=== PATIENT | female | born 1955 | race Caucasian/White ===

== ENCOUNTER 2021-08-28 10:40 | Emergency (ER) | payer OTHER ==
[~2021-08-28] VITALS: Ht 157.5 cm; Wt 37.6 kg
[~2021-08-28 10:40] MED LIST: CEFDINIR300 MG PO; PERCOCET 5-3251 EACH PO; XANAX 0.5 MG0.5 M1 PO
[2021-08-28 15:46] VITALS: BP 156/95
[2021-08-29] MEDS ORDERED: LIPITOR 10 MG10 M1 PO (01:36)
[2021-08-29] MEDS ORDERED: ZOCOR 10 MG TAB10 M1 PO (02:24)
[2021-08-29] MEDS ORDERED: SPIRIVA18 MCG INH (02:24)
[2021-08-29] MEDS ORDERED: NABUMETONE 500500 M2 PO (02:25)
[2021-08-29] MEDS ORDERED: VENTOLIN HFA 1818 GM INH (02:26)
== END 2021-08-28 19:09 ==
LOC: ER 10:40
PROVIDERS: Emergency Medicine
DX: F99 Mental disorder, not otherwise specified (principal); Z20.822 Contact with and (suspected) exposure to COVID-19; E78.5 Hyperlipidemia, unspecified; Z79.899 Other long term (current) drug therapy; Z79.891 Long term (current) use of opiate analgesic; Z88.8 Allergy status to other drugs, medicaments and biological substances

== ENCOUNTER 2021-08-28 19:34 | Inpatient (IN) | payer OTHER ==
[~2021-08-28] VITALS: Ht 162.6 cm; Wt 36.3 kg
[2021-08-29] MEDS ORDERED: LIPITOR 10 MG10 M1 PO (01:36)
[2021-08-29] MEDS ORDERED: ZOCOR 10 MG TAB10 M1 PO (02:24)
[2021-08-29] MEDS ORDERED: SPIRIVA18 MCG INH (02:24)
[2021-08-29] MEDS ORDERED: NABUMETONE 500500 M2 PO (02:25)
[2021-08-29] MEDS ORDERED: VENTOLIN HFA 1818 GM INH (02:26)
--- NOTE | 2021-08-29 04:32 | NUR ---
ARRIVED VIA W/C ACCOMPANIED BY X1 STAFF FROM THE [facility] EMERGENCY DEPARTMENT, AND PREVIOUS TO THAT THE [facility]. COVID 19 PCR IS NEGATIVE. TRANSFERRED TO [facility] WITH A STEADY STAND TO TRANSFER NOTED. VSS 137/102 111 19 98.6 94% ON ROOM AIR. 80.6 LBS 5'3" HRRR LULNGS CTA ABD AUSCULTATED HYPOACTIVE BOWEL SOUNDS X 4. REPORTS NORMAL BM TODAY. REPORTS THAT WHEN SHE PEES, IT WAS BURNING FROM THE UTI, HOWEVER NOW IT FEELS NORMAL. AN OCCASIONAL COUGH NOTED. REPORTS HAS CHILDREN, ONE WHO LIVES DOWN THE STREET, ONE WHO LIVES IN A [place] TOWN AND ONE WHO LIVES [place]. ACKNOWLEDGES ANXIETY AND REPORTS THAT HER ANXIETY "KEEPS ME FROM BEING ABLE TO MAKE SOCIAL CHOICES, I CAN PAY MY BILLS" HIGH LEVEL OF ANXIETY NOTED, AND PATIENT REPEATEDLY ASKSFOR WHAT EVER IS ON HER MIND, AND DOES NOT REMEMBER THE ANSWER WE DISCUSSED MINUTES BEFORE. A&OX3 WITH FORGETFULNESS NOTED. FEET HAVE PEDAL PULSES PRESENT BILAT WITH A <3 SEC CAP REFILL. SKIN ON EXTREMITIES IS COOL AND DRY. SKIN IS INTACT. REPORTS A SENSITIVE STOMACH, REPORTS THAT SHE HAS NOT EATEN MUCH FOR THE LAST WEEK THAT SHE HAS HAD WHAT SHE CALLS A NERVOUS BREAK. REPORTS FEELING SAFE AT HOME AND THAT SHE LIVES ALONE IN AN APT. REPORTS ABLE TO DO ADLS AND DO CHORES FOR HERSELF. DENIES HAVING A DPOA AND REPORTS THAT SHE HAS HELP MAKING MEDICAL DECISIONS FROM SONS LEIF AND NICCI. ASSISTED PATIENT WITH CALLING LEIF. NURSE DISCUSSED ADMISSION AND THE PSYCHIATRIC CARE THAT HIS MOTHER WILL RECEIVE IN PATIENT AT [facility]. PATIENT WAS INITIALLY RELUCTANT TO SIGN HERSELF IN, AND AFTER SPEAKING TO HER SON, RECONSIDERED AND SIGNED HER CONSENT TO TREAT. SAT UP IN THE DAY ROOM IN A MIRIAM CHAIR AND DID NOT SEEM TO SLEEP MUCH AT ALL, IF ANY. AMBULATES WITH A STEADY GAIT WITHOUT THE USE OF ANY SAFETY DEVICE. LOW FALL RISK. WILL CONTINUE TO MONITOR FOR SAFETY AND COMFORT PER UNIT PROTOCOL.
[2021-08-29 05:56] LABS: CHOLESTEROL 217 mg/dL (<200); HDL CHOLESTEROL 72 mg/dL (>40); LDL CHOLESTEROL 125 mg/dL (<100); TRIGLYCERIDE 104 mg/dL (<150); VLDL 21 mg/dL (<40)
[2021-08-29 06:00] LABS: SERUM ASSESSMENT Clear
--- NOTE | 2021-08-29 08:49 | NUR ---
08-29-2021--6845--Introduced myself to patient and asked questions to gather infomation to complete a psychosocial. Patient wu no DPOA but stated she didn't ever want to be on a respirator. I explained that havoig a DPOA could be useful so that didn't happen and that the DPOA could make decisions for her if she was so sick she couldn't. She stated that sounded like a good idea but she wanted to talk to her children first to see if they would take on this responsibility.
[2021-08-29 09:38] VITALS: BP 126/76
[2021-08-29 12:24] VITALS: BP 126/76
--- NOTE | 2021-08-29 15:29 | NUR ---
Gloria was alert and oriented x4 throughout the day but appeared forgetful as pt was at the nurses station almost every 5 mintues asking for her medication. Pt was given medication education but she still continued to repeatedly come to the nurses station asking for her medications. She voiced being "nervous" and stated she didn't think her medication was working as well as it used to. She voiced c/o back pain and from 0900 until she was able to get her oxycodone (at 1200), pt would frequently ask for her pain medication. She ate about 50% of her breakfast but only 25% of lunch. Pt remained in the dayroom for most of the day and sat through group. She called and spoke to her children this morning and was able to make her needs known. Pt ambualted independently without difficulty and is a low fall risk. Will continue to monitor.
[2021-08-29 19:52] VITALS: BP 135/77
[2021-08-29 20:00] VITALS: BP 135/77
--- NOTE | 2021-08-30 01:30 | NUR ---
PATIENT SAT UP IN DINING ROOM TILL BED TIME. SHE KEPT COMING TO THIS NURSE EVERY 10 MINUTES WANTING HER XANAX. I KEPT TELLING HER IT WASN'T TIME FOR IT AND WHEN IT WOULD BE AND HOW LONG SHE HAD TO WAIT. I PROMISED I WOULD GET IT TO HER WHEN IT'S DUE. NOT SURE IF PATIENT FORGETS OR IS JUST ANXIOUS ABOUT NOT GETTING IT. PATIENT STATES THAT SHE IS NOT SI/HI/AVH. STATES SHE HAS ALWAYS BEEN A VERY ANXIOUS PERSON AND IS DEPENDENT ON HER XANAX TO HELP CONTROL IT. I DID NOT TELL PATIENT BUT PATIENT'S DOSE WAS DECREASED BY HALF OF WHAT SHE WAS TAKING. PATIENT CAME OUT OF HER ROOM AFTER TRYING TO SLEEP TO SIT UP IN THE DINING ROOM. CALLED AND SPOKE WITH TROY GODINEZ REGARDING PATIENT'S ANXIETY HIGH AND NOT ABLE TO SLEEP. NEW ORDER RECEIVED FOR TRAZADONE 50MG PO AT HS AND MAY REPEAT X 1 IF NOT ASLEEP IN AN HOUR. PATIENT WAS GIVEN ONE DOSE BUT AFTER AN HOUR SHE STILL FELT ANXIOUS AND UNABLE TO SLEEP. SHE WAS ABLE TO LAY DOWN AND LAY STILL A LITTLE LONGER THOUGHT. SECOND DOSE OF TRAZADONE 50 MG PO GIVEN TO THE PATIENT. PATIENT IS RESTING IN ROOM WITH EYES CLOSED AT THIS TIME. PATIENT AMBULATES WITHOUT ASSISTANCE AND IS STEADY ON HER FEET. SHE IS INDEPENDENT WITH CARES. PT TOOK MEDS WHOLE WITH WATER. PATIENT TOOK OXYCONTIN FOR CHRONIC BACK PAIN AT HS. BED IN LOW POSITION. PATIENT COOPERATIVE, JUST ANXIOUS AND RESTLESS AT TIMES. DENIES SI/HI/AVH. ROUTINE ROUNDS TO ASSESS SAFETY AND STATUS OF PATIENT.
[2021-08-30 04:06] LABS: GLYCOHEMOGLOBIN (HGB A1C) 5.7 % (4.8-5.6)
[2021-08-30 09:36] VITALS: BP 115/66
--- NOTE | 2021-08-30 09:52 | NUR ---
[facility] just returned a phone call from a VM left over the weekend to verify pt's medications. They stated they only filled xanax and percocet for pt on 07/27 #120 for each. Pt was prescribed xanax 1mg QID, and perocet 10-325 mg q6PRN.
[2021-08-30 10:59] VITALS: BP 115/66
--- NOTE | 2021-08-30 13:00 | NUR ---
08-30-2021--1300--Patient stopped me and asked when she could go home. I talked to her briefly about Assisted Living. She states she is doing fine living alone and she wants to go back to her apartment. I told her I would let the doctor know.
--- NOTE | 2021-08-30 17:55 | NUR ---
Pt was alert and oriented x4 throughout the day, but appeared forgetful and highly anxious. She presents with a flat, blunted affect and does not respond well to redirection. She is frequently at the nurses station asking for her xanax, and when given medication education, pt blankly stares at the staff member and does not seem to comprehend the education given. Pt appears unkept and had a significant amount of dirt under her finger nails. Pt was offered a shower and declined. This RN asked to clean the dirt from under pt's nails and she replied "why? they're not that bad?", pt allowed fingers to be cleaned with much encouragement. Pt rated her anxiety 9/10 and depression 6/10, 10 being the worst. She denied SI/HI/RAYGOZA and contracted for safety. Pt also repeadetly requested to leave today, and was placed on an involuntary 96 hour hold. Pt was handed her right and read her rights at 1715; paperwork was also faxed at this time. There was not a notary on staff at the time of fax, therefore they were faxed without being notarized. Pt voiced some frustrations regarding this and placed a phone call to her son. Pt received percocet PRN for c/o back pain with partial relief. Pt remained in the dayroom for most of the shift and participated in group. Will continue to monitor.
[2021-08-30 20:10] VITALS: BP 139/87
[2021-08-30 20:22] VITALS: BP 139/87
--- NOTE | 2021-08-31 00:10 | NUR ---
PATIENT DOUG HAS BEEN HIGHLY ANXIOUS. SHE HAS BEEN RESTLESS AND PACING AT TIMES. SHE COMES TO THE NURSE OR OTHER NURSES EVERY 2 TO 3 MINUTES SAYING SHE NEEDS HER XANAX. I SAT DOWN WITH HER TO TRY AND EXPLAIN HOW THE DOCTOR IS TRYING TO GET HER WEANED OFF THE XANAX AND ONTO A SAFER MED FOR HER ANXIETY. I'VE HAD CALLS FROM 2 OF HER SONS DOUG STATING SHE NEEDS THE XANAX AND HER PCP HAS TRIED TO GET HER OFF OF IT AND WAS UNSUCCESSFUL AND AGREES SHE NEEDS TO STAY ON IT. ONE SON, CHANDNI SAYS HIS MOM (THIS PT} HAS BEEN ON XANAX FOR 40 YEARS AND HAS HAD ALOT OF TRAUMA IN HER LIFE AND CANNOT FUNCTION NORMALLY WITHOUT IT. HE SAYS THE ANXIETY CRIPPLES HER AND PREVENTS HER HAVING A QUALITY OF LIFE. HE AND HIS BROTHER, LEIF, THAT GOES BY THE NAME NICCI, WERE ENCOURAGED TO CALL THE QUALITY AND RELIABILITY ENGINEER OR ASK FOR DR MARK TOMORROW TO DISCUSS. THEY BOTH FEEL SHE SHOULD NOT HAVE BEEN BROUGHT HERE FROM [facility] AND ARE VERY CONCERNED ABOUT HER WELL BEING. I DID CALL AND SPEAK WITH DR Kovacs REGARDING PATIENT'S ANXIETY LEVEL AND WANTED CLARITY ON HIS THINKING SINCE HE CUT HER XANAX DOSE DOWN TO BID INSTEAD OF TID AND SHE HAD BEEN ON QID AND HER ANXIETY HAS NOT IMPROVED. HE ORDERED ATIVAN .5 MG PO ONE TIME. SHE WAS GIVEN THIS WITH HER DOSE OF OXYCODONE AND FLEXERIL. SHE HAS 8 OUT 1-10 BACK PAIN. 15 MINUTES AFTER I GAVE HER THESE MEDS SHE CAME TO THE DESK AND SAID HER BACK WAS STILL HURTING ALOT. I FIXED HER A WARM MOIST PACK FOR HER BACK. SHE REFUSED THIS. FINALLY CONVINCED HER TO LAY DOWN AND REST IN BED. PATIENT ALSO HAD 2ND DOSE OF TRAZADONE 5O MG. AT THIS TIME PT LAYING IN BED AWAKE BUT STATES HER PAIN IS GONE. CONTINUING TO MONITOR.
[2021-08-31 09:08] VITALS: BP 124/73
[2021-08-31 09:36] VITALS: BP 124/73
--- NOTE | 2021-08-31 16:54 | NUR ---
Pt was alert and oriented x4 throughout the day but did appeared forgetful at times. Pt denied SI/HI/RAYGOZA but did endorse elevated anxiety, rating her anxiety 9/10. She rated her depression "4 or 5" out of 10; 10 being the worst. She also voiced c/o back pain, rating it 7/10; 10 being the worst, that was partially relieved with PRN oxycodone. She required frequent redirection as she would come to the nurses station between her scheduled xanax doses, asking for her xanax. She was noted smiling at times throughout the day and did appear more pleasant this shift than day previous, although she still wishes to go home. She did attend some groups this shift, but was withdrawn to her room at times due to being fearful of another pt on the unit. Pt's PO intake did appear to improve from previous day, eating about 50% of each meal. Pt has no new orders at this time, will continue to monitor.
[2021-08-31 19:53] VITALS: BP 129/81
[2021-09-01 00:20] VITALS: BP 163/99
--- NOTE | 2021-09-01 07:18 | NUR ---
08-31-21 CARE TRANSFERRED 1899 OBSERVED PT WALKING IN HALLWAY. LATER PT AAOX4, VSS, RR EVEN AND NONLABORED ON RA. PT DENIES SI/HI BUT REPORTS PAIN IN BACK, AND SHOWS CONCERN ABOUT PAIN MANAGEMENT. PT REMAINED CALM AND COOPERATIVE DURING NURSING ASSESSMENT. PT HAD NO DIFFICLTIES TAKING MEDICATION WHOLE WITH WATER. UPON REASSESSMENT PT REPORTED GETTING NO PAIN RELIEF. PT ACKNOWLEDGES EDUCATION WITH UNDERSTANDING THAT HCP IS CURRENTLY WORKING ON MODIFICATION OF MEDICATION REGIMENT. EARLY AM PT CAME OUT AND REPORTED SHE NEED TO LEAVE, FOR SHE NEED TO BUY A PACK OF SMOKES, PT ACKNOWLEDGE THAT SHE DID GET THE NICOTINE PATCH HCP ORDERED. LATER NOTED PT RESTING WITH EYES CLOSED IN RECLINER IN DAY ROOM. PT IWLL CONTINUE TO BE MONITOR PER [facility] PROTOCOL.
[2021-09-01 09:47] VITALS: BP 147/78
--- NOTE | 2021-09-01 12:15 | NUR ---
08/31/[address] Simpson met with the Pt. Pt was very focused on getting xanax and hydrocodone. Pt refused to give the name of her PCP stating "I dont want you to call my doctor, I need my medications to be the same". Dr. Simpson was able to find the Pt's PCP, Dedra Amin, [facility]. Pt was upset about this stating " I don't want you to talk to my doctor about my medications". Dr. Simpson explained that he would need to contact Dedra Amin concerns the matter. It was explained to the Pt that some of the medications she is taking have some impact on cognition and considering the reason the Pt was admitted it is important for the Pt to understand the impact and the have a conversation with her PCP. Pt the began to ask about discharge. Pt was informed she may be discharged or Monday. Pt seemed to be happy with this information and asked several time if the date was or Monday. We attempted to reach the Pt's son Kobe, however efforts were not sucessful. MITZI will continue to follow.
--- NOTE | 2021-09-01 14:45 | NUR ---
Assumed pt care at 0700. Pt was nonverbal upon assessment.Pt refused answering orientation question. No sign of acute distress noted upon assessments. Pt ambulates with a slow gait. AT AM pt was refusing 9AM meds. she was requesting for oxycodone and xanax Alone. Bean Weigher assess pt for pain, pt admitted that she had no pain. Dr Lara was notified. Oxycodone was D/C. Pt refused eating of drinking at this time. Continent of bowel and bladder. Constantly requesting for oxycondone and xanax. At this time pt is sitting in the day room. Will continue to monitor.
[2021-09-01 19:25] VITALS: BP 167/89
[2021-09-01 22:37] VITALS: BP 155/91
[2021-09-02 02:30] VITALS: BP 135/77
--- NOTE | 2021-09-02 06:46 | NUR ---
09-01-21 CARE TRANSFERRED 1899 OBSERVED PT SITTING IN DAY ROOM. LATER PT PRESENTS 4MM PUPIL, SKIN MOIST, PALMS MOIST, NASAL DRIP, SLIGHT TREMORS WHEN EXTENDING ARMS. HCP Artie CHESTER CONTACTED APPROX 1924 AND ORDERS RECEIVED. PT B/P AND PULSE ELEVATED FROM BASELINE. PT REFUSED MEDICATION AND WOULD ONLY ANSWER QUESTION WITH ONE ONE. THREE ATTEMPTS FOR MEDICATION BY THIS BIOLOGICAL SCIENCE TECHNICIAN, BOTH RN ON SHIFT ALSO MADE AN ATTEMPT. STARTED TAKING VS Q2H AND PER Artie CHESTER DO ORDERS CONSULTED Artie AGGARWAL NP WHO ACCESSED AND BLD GLUCOSE TAKEN 117. Artie CHESTER DO CALLED FOR UPDATE AND Artie AGGARWAL NP COMMUNICATED AND ORDERS WERE RECEIVED AND MEDICATION ADMIN, AND PT B/P AND PULSE LOWERED. PT HAS BEEN IN DAY ROOM FOR PT SAFETY, PT WILL CONTINUE TO BE MONITOR.
--- NOTE | 2021-09-02 09:25 | NUR ---
Pt has the following appointments: PCP- Dedra Echevarria NP- 09/03/2021 @1300 Pt woill need to walk into [facility] to complete and intake anytime [id number]. This information was verbal given to the Pt and included in the discharge document. Pt will discharge home 09/02/2021 @ 1000 via Taxi.
[2021-09-02 10:14] VITALS: BP 125/83
[2021-09-02 10:17] VITALS: BP 125/83
--- NOTE | 2021-09-02 10:31 | NUR ---
SPOKE WITH DR. MARK THIS AM. REPORTS PLANS TO D/C OT ORDERS FOR [facility] AND EVAL DUE TO PT. REFUSAL TO PARTICIPATE AND PLANS TO D/C TODAY/TOMORROW. OT WILL PLACE PT. ON D/C LIST, PLEASE SEND NEW ORDERS IF PT. WILLING TO PARTICIPATE.
[2021-09-02 10:34] LABS: HEMATOCRIT 43.4 % (37.0-47.0); HEMOGLOBIN 14.6 gm/dL (12.0-15.0); MCHC 33.8 g/dL (28.0-37.0); MCV 91.7 fL (80.0-100.0); RBC 4.73 mil/uL (4.20-5.00); RDW 12.8 % (10.5-14.5); WBC 9.6 thou/uL (4.0-11.0)
[2021-09-02 10:52] LABS: ALBUMIN 4.1 g/dL (3.4-5.0); CALCIUM 9.3 mg/dL (8.5-10.1); CREATININE 0.7 mg/dL (0.6-1.0); MAGNESIUM 2.2 mg/dL (1.8-2.4); POTASSIUM 3.6 mmol/L (3.5-5.1); TOTAL BILIRUBIN 0.6 mg/dL (0.2-1.0); TOTAL PROTEIN 7.7 g/dL (6.4-8.2)
--- NOTE | 2021-09-02 15:48 | NUR ---
RESUMMED CARE FROM OVERNIGHT SHIFT THIS AM, PATIENT SITTING IN DAY ROOM SLOUCHED DOWN IM CHAIR. PATIENT ALERT TO SELF ONLY PATIENT UNABLE TO TELL ME ABOUT SI/HI/AH/VH AT PRESENT. PATIENT APPEARED SEDATED DR GANDARA CAME TO ROUND AND ORDERED LABS ON PATIENT. PATIENTS ABDOMEN SOFT BOWEL SOUNDS PRESENT, PATIENTS LUNGS CLEAR. PATIENTS DISCHARGE CANELLED DUE TO APPEARING SEDATED, PATIENT HAS NOT DISPLAYED ANY BEHAVIORS. WILL CONTINUE TO MONITOR PATIENT FOR SAFETY AND NEHAVIORS.
[2021-09-02 19:35] VITALS: BP 141/94
--- NOTE | 2021-09-03 02:40 | NUR ---
PATIENT IS CONFUSED AND WILL ASK THE SAME QUESTIONS OVER AND OVER EVEN AFTER GETTING ANSWERS. PATIENT WAS OUT IN DAY ROOM THIS EVENING AND RATES HER DEPRESSION AND ANXIETY A 6-05/15 AND DENIES SI/HI, AH/VH. PATIENT DID ARGUE WITH ME FOR A LITTLE WHILE BECAUSE SHE WANTED HER OXY AND XANAX BUT I EXPLAINED TO HER THEY WERE D/C. PATIENT DID TAKE HS MEDICATIONS AND HAS SLEPT THROUGH THE NIGHT.
[2021-09-03 06:19] LABS: MCH 30.9 pg (26.0-34.0); MCHC 33.3 g/dL (28.0-37.0); MCV 92.6 fL (80.0-100.0); RBC 4.54 mil/uL (4.20-5.00); RDW 12.6 % (10.5-14.5); WBC 10.7 thou/uL (4.0-11.0)
[2021-09-03 06:32] LABS: CALCIUM 9.2 mg/dL (8.5-10.1); CREATININE 0.5 mg/dL (0.6-1.0); MAGNESIUM 2.2 mg/dL (1.8-2.4); POTASSIUM 4.3 mmol/L (3.5-5.1)
--- NOTE | 2021-09-03 09:19 | NUR ---
Patient's son Kobe called the unit inquiring if this patient was going to discharge today. certified legal secretary specialist reported this to nurse patient safety manager. Dr. Lara was called. He stated she could be discharged at 10:30am today and he would complete discharge paperwork. This nurse called Kobe to relay the information regarding discharge. He stated that he had already cancelled Medicaid transport to take patient to her 1pm appointment with her PCP. This nurse apologized and offered to call Medicaid transport back to set up transport. Kobe was appreciative of this at that moment. He then started to state that she had to have this appointment to get her medications filled. Education provided regarding MD prescribing current medications that she has been stable on while inpatient. Educated current medication regimen and prescriptions that would be sent home. Kobe then became frustrated stating that the MD took her off of her medication and she is going to because of anxiety and depression. He stated that she needed to get to the 1pm appointment so they can fill the "other medication". Kobe then started to rant about how he didn't care what schooling and licenses we have, we need to give her the "good medicine". He then started yelling about how he was going to have his mom (the patient) give a review on [place] and [place] because we won't give her the "good medicine". Yelling that he already had to cancel one appointment because of a doctor at [place] and another appointment because of a doctor at [place]. Education provided that discharge was cancelled yesterday 09/02/21 because patient was very lethargic and we wanted to ensure that she did not have any medical issues prior to discharge. Education provided that she will be discharged at 10:30am by taxi today (09/03/21) so she can make her afternoon appointment if she wished. Kobe then started to call myself a "fucking bitch" screaming. Marietta Howell RN, was present while this call occurred. Nurse politely told Kobe she was going to hang up the phone and she did.
[2021-09-03] MEDS ORDERED: PAXIL 20 MG TAB20 M1 PO (09:20)
[2021-09-03] MEDS ORDERED: VITAMIN D325 MC2 PO (09:22)
[2021-09-03 09:32] VITALS: BP 141/94
[2021-09-03 09:34] VITALS: BP 149/92
--- NOTE | 2021-09-03 10:50 | NUR ---
RESUMMED CARE FROM OVERNIGHT SHIFT THIS AM, PATIENT IN ROOM LYING QUIET. I GOT PATIENT UP TO EAT BREAKFAST AND TOOK MEDICATION WITHOUT INCIDENCE. PATIENT ALERT 0RIENTED TIMES 3, PATIENT DENIES SI/HI/AH/VH AT PRESENT. PATIENTS ABDOMEN SOFT BOWEL SOUNDS PRESENT. PATIENTS LUNGS CLEAR PATIENT DISCHARGED TO HOME TODAY. PATIENT LEFT WITH BELONGINGS AND AFTERCARE INSTRUCTONS PATIENT PUT INTO A CAB TO GO TO DESTINATION.
--- NOTE | 2021-09-04 23:00 | D ---
[facility] [place] [address] DISCHARGE SUMMARY Name: ESCOBAR FRASER Room #: 526A-[facility]#: [id number] Admission: 08/28/21 Attend Phys: Santy Lara DO Discharge: 09/03/21 Date of : 59 Report #: [id number] THIS REPORT FOR: cc: FAM - Family physician unknown FAM - Family physician unknown Santy Lara DO ~ DATE OF SERVICE: 09/03/2021 INPATIENT PSYCHIATRIC DISCHARGE SUMMARY ATTENDING PSYCHIATRIST: Santy Lara DO SENIOR ENVIRONMENTAL ENGINEER: Payam Davis M.D. DISCHARGE DIAGNOSES: Unspecified depression, substance use disorder for opiates, substance use disorder for benzodiazepines, but needing at this time conservative agonism of alprazolam. The patient is suffering from malnutrition with a BMI of 13.7, recent UTI treated with Rocephin at [facility], on cephalexin at [facility], hyperlipidemia, and chronic back pain. The patient is discharging to her home in [place], [place]. The patient is urged to establish outpatient psychiatric care for addictions as well as general mental health concerns with [facility]. The patient has an appointment with Dedra Amin, nurse practitioner, on 09/03/2021 at 1300 at [facility]. DISCHARGE MEDICATIONS: Alprazolam 0.5 mg oral, it is populated as 3 times a day, but it should be b.i.d., that is what she is getting in the hospital, atorvastatin 10 mg oral daily for hyperlipidemia, Spiriva 1 capsule inhalation daily for COPD, nabumetone 500 mg oral twice daily for chronic pain, albuterol sulfate 2 puffs inhalation p.r.n. shortness of breath, paroxetine 20 mg oral daily for depression and vitamin D supplement 1000 International Units oral daily. LABORATORY DATA: Significant laboratories this admission: Hematology: H and H 14.0 and 42.0, white count 10.7, platelet count 347. Chemistry: Sodium 145, potassium 4.3, chloride 107, bicarbonate 23, anion gap 15, BUN 20, creatinine 0.5, estimated GFR 124, A1c 5.7. Lactic acid 2.0, calcium 9.2, phosphorus 2.5, magnesium 2.2, total bilirubin 0.6, AST 15, ALT 27, alkaline phosphatase 82. CK 217. CK-MB was 6.8 on 08/24. Troponin high sensitivity was 9 on 09/02. NT-proBNP 398 on 08/24, albumin 4.1. B12 997. TSH 0.709. Urine showed 2+ ketones, 1+ leukocyte esterase, white blood cell count 1625, bacteria greater than 30. Acetaminophen less than 2. Benzodiazepines positive. Serum alcohol negative. Coronavirus was not detected on 08/26. On 08/24, CoV-2 PCR was not detected. Urine culture positive for Klebsiella oxytoca Raoultella from culture on 08/24, no growth on blood culture. [address] [address] DISCHARGE SUMMARY Name: ESCOBAR FRASER Room #: 526A-[facility]#: [id number] Admission: 08/28/21 Attend Phys: Santy Lara, DO Discharge: 09/03/21 Date of : 59 Report #: [id number] Correction in date of admission, it was 08/28 here [facility]. He was previously medically admitted to [facility] from 08/24-08/28. REASON FOR ADMISSION: A 66-year-old female who was admitted for acute psychosis, probably delirium related to medication, UTI, poor health self care. HOSPITAL COURSE: The patient was admitted to Geriatric Psychiatry Unit. She remains highly focused on getting oxycodone and alprazolam. She was started on oxycodone 5 mg 3 times a day, which was a dose reduction from 10 mg strength and Xanax 0.5 mg t.i.d. When I assumed the case following work week, I reduced the Xanax to 0.5 b.i.d. I kept the oxycodone in place. It got to the point where the patient was not eating or drinking and not showing objective signs of pain. The oxycodone was discontinued. Briefly near the end of the admission, we thought the patient was in opiate withdrawal. This has remained of question. Her [facility] mental status examination was an 18/30. During his stay as well, I spoke to Dedra Amin, an outpatient provider, discussed my concerns for the patient possibly having dementia and the concern of potential misuse of controlled substances. It had been about 3 months since she had seen the patient. She has had a significant weight loss since the BMI is 17. PHYSICAL EXAMINATION: VITAL SIGNS: On the day of discharge, temperature 36.7, pulse 100, respirations 18, BP 149/90, O2 sat 94%. MUSCULOSKELETAL: Normal gait and station, disheveled appearance. MENTAL STATUS EXAMINATION: This is a well-developed, ill-appearing female, appearing stated age. Attention fair. Concentration limited. Speech soft, normal rate. Thought process: Linear and goal directed. Thought content, focused on getting oxycodone. Denied SI, HI. Denied auditory, visual, or tactile hallucinations. Memory, not formally tested on the day of discharge. Insight and judgment are both limited. Mood and affect were restricted, congruent, diminished range. Fund of knowledge was below average. Prognosis for this patient is quite guarded given chronic use of controlled substances, refusal to get psychiatric care over several years. Also, poor social support. She did have a son named Obi that was contacted during admission, he was in favor of the mother remain on controlled substances. There were a couple of instances of him speaking inappropriately to the nursing staff, so his involvement was quite limited. <ELECTRONICALLY SIGNED> By: Santy Lara DO 09/04/212299 1749 19 Santy Lara DO /nt
== END 2021-09-03 10:00 | disposition home or self-care (01) | DRG 881 ==
LOC: SBH 19:34
PROVIDERS: Internal Medicine; Nurse Practitioner; ADMIT Psychiatry & Neurology Psychiatry; ATTEND Psychiatry & Neurology Psychiatry
DX: F32.9 Major depressive disorder, single episode, unspecified (principal); E43 Unspecified severe protein-calorie malnutrition; F11.23 Opioid dependence with withdrawal; N39.0 Urinary tract infection, site not specified; F13.20 Sedative, hypnotic or anxiolytic dependence, uncomplicated; Z68.1 Body mass index [BMI] 19.9 or less, adult; F29 Unspecified psychosis not due to a substance or known physiological condition; F41.9 Anxiety disorder, unspecified; E78.5 Hyperlipidemia, unspecified; Z60.2 Problems related to living alone; R41.0 Disorientation, unspecified; G89.29 Other chronic pain; M54.9 Dorsalgia, unspecified; Z88.8 Allergy status to other drugs, medicaments and biological substances; Z87.820 Personal history of traumatic brain injury; Z79.899 Other long term (current) drug therapy; Z20.822 Contact with and (suspected) exposure to COVID-19
CPT/HCPCS: 10880

== ENCOUNTER 2021-09-25 22:20 | Emergency (ER) | payer OTHER ==
[~2021-09-25] VITALS: Ht 152.4 cm; Wt 54.4 kg
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
[~2021-09-25 22:20] MED LIST changes: +LIPITOR 10 MG10 M1 PO; +NABUMETONE 500500 M2 PO; +PAXIL 20 MG TAB20 M1 PO; +SPIRIVA18 MCG INH; +VENTOLIN HFA 1818 GM INH; +VITAMIN D325 MC2 PO; +ZOCOR 10 MG TAB10 M1 PO
[2021-09-25 22:23] VITALS: BP 113/66
== END 2021-09-26 02:07 ==
LOC: ER 22:20
PROVIDERS: Student in an Organized Health Care Education/Training Program
DX: F03.91 Unspecified dementia, unspecified severity, with behavioral disturbance (principal); Z20.822 Contact with and (suspected) exposure to COVID-19; E78.5 Hyperlipidemia, unspecified; F41.9 Anxiety disorder, unspecified; Z79.899 Other long term (current) drug therapy; Z88.8 Allergy status to other drugs, medicaments and biological substances

== ENCOUNTER 2021-09-25 23:05 | Inpatient (IN) | payer OTHER ==
--- NOTE | 2021-09-26 04:20 | NUR ---
Pt was admitted to [facility] on 09/26/2021 at 0140. Pt was mostly cooperative with admission process. Vital signs obtained; results within normal values. Skin assessment performed; results unremarkable. Pt stated she was unsure if she wanted to sign in voluntarily. Pt requested to be asked again in the morning. Orders obtained from Jose Melchor. Hospitalist notified.
[2021-09-26 06:23] LABS: CHOLESTEROL 248 mg/dL (<200); HDL CHOLESTEROL 80 mg/dL (>40); LDL CHOLESTEROL 153 mg/dL (<100); TC:HDL 3.1 Ratio (Not establshd); TRIGLYCERIDE 75 mg/dL (<150); VLDL 15 mg/dL (<40)
[2021-09-26 09:53] VITALS: BP 120/64
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
[2021-09-26 12:09] VITALS: BP 120/64
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
[2021-09-26 20:43] VITALS: BP 117/72
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
[2021-09-27 05:06] LABS: GLYCOHEMOGLOBIN (HGB A1C) 5.8 % (4.8-5.6)
[2021-09-27 08:00] VITALS: BP 114/75
[2021-09-27 11:40] VITALS: BP 114/75
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
[2021-09-27 19:55] VITALS: BP 131/86
[2021-09-27 20:40] VITALS: BP 131/86
--- NOTE | 2021-09-28 03:24 | NUR ---
PATIENT WAS UPSET AT BEGINNING OF THE SHIFT BECAUSE SHE WAS TOLD SHE COULD NOT MAKE A PHONE CALL TO HER SON SONIA SINCE SHE HAD TALKED ON THE PHONE THREE TIMES TODAY. SHE FIXATED ON THIS ALL EVENING AND KEPT ASKING WHY DR MARK WOULDN'T USE THE PHONE. SHE FOLLOWED ME AROUND AND KEPT ASKING. I TOLD HER I COULD CALL DR MARK AND ASK HIM FOR HER. SHE ADAMNTLY REPLIED "NO!, THEN HE MAY MAKE ME STAY HERE LONGER." I EXPLAINED THAT SHE COULD TALK TO HER SON IF HE CALLED BUT SHE HAD MADE ENOUGH CALLS OUT FOR THE DAY AND OTHER PATIENTS NEEDED TO HAVE A TURN. SHE THEN WANTED HER HS PILLS FIRST THING. I DID GIVE HER HER MEDS FIRST. LATER SHE SAID SHE COULDN'T SLEEP AND WAS ANXIOUS. PRN OLANZAPINE WAS GIVEN PO A LITTLE LATER AND THE PATIENT HAS BEEN SLEEPING SINCE. SHE IS A/0X3-4. SHE WALKS WITH A STEADY GAIT. SHE HAS NOT COMPLAINED OF ANY PAIN TONIGHT. SHE TOOK HER MEDS WHOLE WITH WATER. SHE HAD EXTRA FOOD IN HER ROOM AND THIS WAS REMOVED (SUGAR PACKETS,PUDDING,ROBBY CRACKERS, EMPTY ENSURE CONTAINER.) PATIENT IS A LOW FALL RISK. BED IN LOW POSITION AND ROUTINE ROUNDS TO ASSESS SAFETY AND STATUS OF PATIENT. SHE IS TO DC 09/28/21 BY TAXI TO HER HOME AT 1300.
[2021-09-28 09:29] VITALS: BP 130/87
[2021-09-28] MEDS ORDERED: ZYPREXA 5 MG TAB5 M1 PO (10:10)
[2021-09-28 10:46] VITALS: BP 130/87
--- NOTE | 2021-09-28 10:51 | NUR ---
Patient had breakfast in the day room, poor appetite. She stayed in the day room for the morning group session. She has been anxiously waiting to go home. Patient has been asking to call her son, staff have tried helping her call him 2x and he has not answered. She denies haivng SI/HI thoughts. She said she does not feel depressed today. She took her medications whole, with no difficulty. She has been seen making conversation with other patients. She is currently getting dressed to prepare for being dischagred to home at 1300.
--- NOTE | 2021-09-28 12:06 | NUR ---
DISCHARGE INSTRUCTIONS REVIEWED WITH PATIENT SHE STATES UNDERSTANDING AND DENIES QUESTIONS OR CONCERNS REGARDING INFORMATION PROVIDED. DENIES SI/SH/HI. SMILING BROADLY STATING "I CAN'T WAIT TO GET HO0ME TO MY CHILDREN" NO NOTED OR REPORTED PSYCHOSIS/PARANOIA-DOES REPORT SOME MILD/MODERATE ANXIETY R/T DC PROCESS OTHERWISE DENIES COMPLAINTS "I FEEL GREAT"PERSONAL BELONGINGS GATHERED AND CHECKED AGAINST ADMIT INVENTORY WITH ALL BELONGINGS ACCOUNTED FOR AT TIME OF DC. CURRENTLY EATING LUNCH-AWAITING TAXI.
--- NOTE | 2021-09-30 11:22 | D ---
[facility] [address] [place] [address] DISCHARGE SUMMARY Name: GLORIA FRASER Room #: 520B-B DIS IN M.R.#: [id number] Admission: 09/26/21 Attend Phys: Santy Lara DO Discharge: 09/28/21 Date of : 59 Report #: [id number] THIS REPORT FOR: cc: FAM - Family physician unknown FAM - Family physician unknown Santy Lara DO ~ DATE OF SERVICE: 09/28/2021 INPATIENT PSYCHIATRIC DISCHARGE SUMMARY ATTENDING PSYCHIATRIST: Santy Lara DO INSPECTOR INSULATION: Allie Nelson MD DISCHARGE DIAGNOSES: Unspecified psychosis, resolved. History of substance use disorder for benzodiazepines and opiates, moderate degree. Mild neurocognitive disorder. The patient is discharging to her home. After care, she will need to establish with [facility] for dual diagnosis treatment. The patient's primary care physician, Dedra her last appointment was on 09/03/2021 at 1300. The patient will need to schedule her own followup appointment. Major neurocognitive disorder, unspecified, F32.9. ADDITIONAL INFORMATION: DISCHARGE DIET: Regular. No alcohol, no illicit drugs. Strongly advised against benzodiazepines or opioids unless absolutely necessary for acuate injury prescribed by physician. The patient is a smoker. She has declined smoking cessation of any sort. ACTIVITY LEVEL: As tolerated. Recommended against driving or operating dangerous equipment. DISCHARGE MEDICATIONS: Olanzapine 5 mg oral q. 4 p.r.n. anxiety or agitation #20. Atorvastatin 10 mg oral at bedtime for hyperlipidemia. The patient takes paroxetine 20 mg oral daily for history of depression and anxiety. She takes nabumetone 500 mg oral b.i.d. as NSAID for arthritis, vitamin D 1000 International Units oral daily for supplementation. Albuterol p.r.n. for shortness of breath, which I really do not think she required during this admission. LABORATORY DATA: Significant laboratories this admission, cholesterol 248, LDL 153, HDL 80. A1c this admission 5.8 COVID-19 PCR negative. REASON FOR ADMISSION: A 66-year-old female transferred from [facility]. She is known to us from an admission in 08/2021. The patient had been medically admitted after wandering behavior what appeared [address] [address] DISCHARGE SUMMARY Name: GLORIA FRASER Room #: 520B-B [facility].#: [id number] Admission: 09/26/21 Attend Phys: Santy Lara, Discharge: 09/28/21 Date of : 59 Report #: [id number] to be delirium, electrolyte imbalance, kind of fully cleared up, she was referred for psychiatric admission. HOSPITAL COURSE: The patient was admitted to Geriatric Psychiatry Unit. As was previously experienced, the patient was medication seeking for Xanax and opiates. She was temporarily started on Xanax by the provider covering for me. I discontinued this as she had been detoxed from it on the previous admission. The patient was not wanting help and therapeutic milieu. She was not suicidal or homicidal, in acute distress. Conversation was had with her son, Luke Crocker, her son Clifton is living with her. Luke Crocker felt comfortable with the patient returning home. Gloria chatman not dirve or operate dangerous machinery, close outpatient medical and mental health followup is essential. Smoking cessation was entertained. The patient declined outright and wishes to get cigareetes and smoke as soon as she is home! CONDITION AT DISCHARGE: Stable. PHYSICAL EXAMINATION: VITAL SIGNS: On the day of discharge, temperature 36.4, pulse 78, respirations 18, BP 130/87, O2 sat 95%, weight 37.467 kilos. NEUROLOGIC: Normal gait and station, unkempt, dress. MENTAL STATUS EXAMINATION: This is a well-developed, somewhat ill-appearing older than stated age female. Attention and concentration fair. Speech normal in rate. Thought process: Linear and goal directed. Thought content: focused on discharge and pain medications, and of course discharge from being in the hospital. Denied suicidal or homicidal ideation, auditory or visual type hallucinations. Mood and affect okay, congruent, euthymic. Memory not formally tested. Insight and judgment fair to limited. Fund of knowledge below average. Prognosis for this patient is guarded and will depend on her staying away from addictive medications, improving health with things like her smoking. <ELECTRONICALLY SIGNED> By: Santy aLra DO 09/30/21 1122 40 23 Santy Lara DO /nt
== END 2021-09-28 13:00 | disposition home or self-care (01) | DRG 881 ==
LOC: SBH 23:05
PROVIDERS: Nurse Practitioner; ADMIT Psychiatry & Neurology Psychiatry; ATTEND Psychiatry & Neurology Psychiatry
DX: F32.9 Major depressive disorder, single episode, unspecified (principal); E43 Unspecified severe protein-calorie malnutrition; F29 Unspecified psychosis not due to a substance or known physiological condition; E78.5 Hyperlipidemia, unspecified; F41.9 Anxiety disorder, unspecified; F15.90 Other stimulant use, unspecified, uncomplicated; G31.84 Mild cognitive impairment of uncertain or unknown etiology; Z87.820 Personal history of traumatic brain injury; Z88.8 Allergy status to other drugs, medicaments and biological substances; Z79.891 Long term (current) use of opiate analgesic
CPT/HCPCS: 10880